=== PATIENT | male | born 1950 | race Caucasian/White ===

== ENCOUNTER 2021-04-01 07:03 | Outpatient (REF) | payer MEDICARE, SELFPAY ==
[2021-04-01 07:27] LABS: MANUAL DIFF FLAG NO
[2021-04-01 07:58] LABS: Basophils Absolute Auto 0.1 X10*3/uL (0.0-0.2); Basophils Percent Auto 1.7 % (0-2); Eosinophils Absolute Auto 0.2 X10*3/uL (0.0-0.4); Hematocrit 43.7 % (42.0-52.0); Hemoglobin 14.6 g/dl (14.0-18.0); Imm Gran Abs Auto 0.01 X10*3/uL (0.00-0.03); Imm Gran Pct Auto 0.2 % (0.0-0.4); Lymphocytes Absolute Auto 1.5 X10*3/uL (1.2-4.9); Lymphocytes Percent Auto 31.1 % (20-40); Mean Corpuscular HGB Conc 33.4 g/dl (31.0-36.0); Mean Corpuscular Hemoglobin 30.2 pg (27.0-33.0); Mean Corpuscular Volume 90.3 fL (80.0-98.0); Mean Platelet Volume 10.4 fL (9.4-12.4); Monocytes Absolute Auto 0.5 X10*3/uL (0.1-1.2); Monocytes Percent Auto 9.9 % (2-11); Neutrophils Absolute Auto 2.5 x10*3/uL (2.0-8.3); Neutrophils Percent Auto 53.1 % (45-73); Platelet Count 173 X10*3/uL (160-400); Red Blood Count 4.84 X10*6/uL (4.60-5.80); Red Cell Distribution Width 12.6 % (11.0-16.0); White Blood Count 4.8 X10*3/uL (4.8-10.8)
[2021-04-01 08:54] LABS: Alanine Aminotransferase 36 U/L (0-40); Albumin Level 4.4 g/dL (3.5-5.0); Alkaline Phosphatase 49 U/L (39-117); Anion Gap 10 (12-20); Aspartate Amino Transferase 30 U/L (5-37); Bilirubin Total 0.7 mg/dL (0.0-1.0); Blood Urea Nitrogen 17 mg/dL (9-16); Calcium 9.9 mg/dL (8.4-10.2); Carbon Dioxide 29 mmol/L (22-29); Chloride 104 mmol/L (96-108); Cholesterol 146 mg/dL; Estimated Glomerular Filt Rate > 60; Glucose Fasting 95 mg/dL (60-99); HDL Cholesterol 43 mg/dL; LDL Cholesterol Calculated 92 mg/dl; Potassium 4.2 mmol/L (3.3-5.1); Sodium 139 mmol/L (135-145); Total Protein 7.1 g/dL (6.5-8.0); Triglycerides 56 mg/dL
[2021-04-01 09:14] LABS: Prostate Specific Antigen Scr 0.79 ng/mL (<0.05-4.0)
== END 2021-04-01 07:04 | disposition home or self-care (01) ==
LOC: HO.LAB 07:03
PROVIDERS: PCP Internal Medicine; Visit Provider Internal Medicine
DX: Z12.5 Encounter for screening for malignant neoplasm of prostate (principal); I10 Essential (primary) hypertension; E78.00 Pure hypercholesterolemia, unspecified; N40.0 Benign prostatic hyperplasia without lower urinary tract symptoms
CPT/HCPCS: 36415; 80053; 80061; 84153; 85025

== ENCOUNTER 2022-09-07 06:17 | Outpatient (REF) | payer MEDICARE, SELFPAY ==
[2022-09-07 06:29] LABS: MANUAL DIFF FLAG NO
[2022-09-07 07:59] LABS: Basophils Absolute Auto 0.1 X10*3/uL (0.0-0.2); Basophils Percent Auto 1.5 % (0-2); Eosinophils Absolute Auto 0.2 X10*3/uL (0.0-0.4); Hematocrit 45.5 % (42.0-52.0); Hemoglobin 15.2 g/dl (14.0-18.0); Imm Gran Abs Auto 0.01 X10*3/uL (0.00-0.03); Imm Gran Pct Auto 0.2 % (0.0-0.4); Lymphocytes Absolute Auto 1.7 X10*3/uL (1.2-4.9); Lymphocytes Percent Auto 32.2 % (20-40); Mean Corpuscular HGB Conc 33.4 g/dl (31.0-36.0); Mean Corpuscular Hemoglobin 29.7 pg (27.0-33.0); Mean Platelet Volume 11.3 fL (9.4-12.4); Monocytes Absolute Auto 0.5 X10*3/uL (0.1-1.2); Monocytes Percent Auto 8.7 % (2-11); NRBC Pct Auto 0.4 /100WBC (0.0-0.2); Neutrophils Absolute Auto 2.8 x10*3/uL (2.0-8.3); Neutrophils Percent Auto 53.4 % (45-73); Platelet Count 212 X10*3/uL (160-400); Red Blood Count 5.11 X10*6/uL (4.60-5.80); Red Cell Distribution Width 12.8 % (11.0-16.0); White Blood Count 5.3 X10*3/uL (4.8-10.8)
[2022-09-07 08:05] LABS: Appearance Urine Cloudy; Color Urine Yellow; Glucose Urine UA Negative (Negative); Leukocyte Esterase Urine Negative (Negative); Nitrite Urine Negative (Negative); PH 7.5 (5.0-9.0); Urine Blood Negative (Negative); Urine Ketones Negative (Negative); Urine Protein Negative (Neg-Trace)
[2022-09-07 08:38] LABS: Alanine Aminotransferase 33 U/L (0-40); Albumin Level 4.4 g/dL (3.5-5.0); Alkaline Phosphatase 54 U/L (39-117); Anion Gap 12 (12-20); Aspartate Amino Transferase 29 U/L (5-37); Bilirubin Total 0.8 mg/dL (0.0-1.0); Blood Urea Nitrogen 21 mg/dL (9-16); Calcium 9.7 mg/dL (8.4-10.2); Carbon Dioxide 27 mmol/L (22-29); Chloride 105 mmol/L (96-108); Cholesterol 137 mg/dL; Estimated Glomerular Filt Rate > 60; Glucose Fasting 90 mg/dL (60-99); HDL Cholesterol 47 mg/dL; LDL Cholesterol Calculated 81 mg/dl; Potassium 4.6 mmol/L (3.3-5.1); Sodium 139 mmol/L (135-145); Triglycerides 48 mg/dL
[2022-09-07 08:45] LABS: Prostate Specific Antigen 0.74 ng/mL (<0.05-4.0)
== END 2022-09-07 06:18 | disposition home or self-care (01) ==
LOC: HO.LAB 06:17
PROVIDERS: PCP Internal Medicine; Visit Provider Internal Medicine
DX: Z00.00 Encounter for general adult medical examination without abnormal findings (principal); Z20.2 Contact with and (suspected) exposure to infections with a predominantly sexual mode of transmission; Z12.5 Encounter for screening for malignant neoplasm of prostate; Z82.49 Family history of ischemic heart disease and other diseases of the circulatory system
CPT/HCPCS: 36415; 80053; 80061; 81003; 84153; 85025

== ENCOUNTER 2022-11-17 11:58 | Outpatient (REF) | payer MEDICARE, SELFPAY ==
[2022-11-17 13:06] LABS: MANUAL DIFF FLAG NO
[2022-11-17 13:11] LABS: Basophils Absolute Auto 0.1 X10*3/uL (0.0-0.2); Basophils Percent Auto 1.7 % (0-2); Eosinophils Absolute Auto 0.3 X10*3/uL (0.0-0.4); Hematocrit 45.3 % (42.0-52.0); Hemoglobin 15.3 g/dl (14.0-18.0); Imm Gran Abs Auto 0.03 X10*3/uL (0.00-0.03); Imm Gran Pct Auto 0.6 % (0.0-0.4); Lymphocytes Absolute Auto 1.2 X10*3/uL (1.2-4.9); Lymphocytes Percent Auto 22.7 % (20-40); Mean Corpuscular HGB Conc 33.8 g/dl (31.0-36.0); Mean Corpuscular Hemoglobin 29.9 pg (27.0-33.0); Mean Corpuscular Volume 88.5 fL (80.0-98.0); Mean Platelet Volume 10.3 fL (9.4-12.4); Monocytes Absolute Auto 0.5 X10*3/uL (0.1-1.2); Monocytes Percent Auto 9.7 % (2-11); Neutrophils Absolute Auto 3.2 x10*3/uL (2.0-8.3); Neutrophils Percent Auto 60.3 % (45-73); Platelet Count 218 X10*3/uL (160-400); Red Blood Count 5.12 X10*6/uL (4.60-5.80); Red Cell Distribution Width 12.6 % (11.0-16.0); White Blood Count 5.3 X10*3/uL (4.8-10.8)
[2022-11-17 13:50] LABS: Anion Gap 13 (12-20); Blood Urea Nitrogen 23 mg/dL (9-16); C Reactive Protein < 0.10 mg/dL (< or = 0.50); Carbon Dioxide 27 mmol/L (22-29); Chloride 105 mmol/L (96-108); Estimated Glomerular Filt Rate > 60; Glucose Random 108 mg/dL (60-115); Potassium 4.7 mmol/L (3.3-5.1); Sodium 140 mmol/L (135-145)
[2022-11-17 13:59] LABS: Appearance Urine Clear; Color Urine Yellow; Glucose Urine UA Negative (Negative); Leukocyte Esterase Urine Negative (Negative); Nitrite Urine Negative (Negative); PH 6.5 (5.0-9.0); Specific Gravity - Urine 1.025 (1.005-1.025); Urine Blood Negative (Negative); Urine Ketones Negative (Negative); Urine Protein Negative (Neg-Trace)
== END 2022-11-17 11:59 | disposition home or self-care (01) ==
LOC: HO.10HDL 11:58
PROVIDERS: Visit Provider Internal Medicine
DX: Z13.89 Encounter for screening for other disorder (principal)
CPT/HCPCS: 36415; 80048; 81003; 82550; 85025; 86140

== ENCOUNTER 2022-11-17 13:28 | Outpatient (REF) | payer MEDICARE, SELFPAY ==
--- NOTE | ~2022-11-17 | US_ITS ---
EXAMINATION: US RETROPERITONEAL COMPLETE (RENAL) CLINICAL INFORMATION: Left flank pain. COMPARISON: CT abdomen and pelvis with contrast 11/26/2012. TECHNIQUE: Real-time imaging of the kidneys and bladder. FINDINGS: RIGHT KIDNEY: 10.4 x 4.6 x 4.7 cm (SAG x AP x TRV). The kidney is normal in size, contour, and echogenicity. Renal cortical thickness is normal. No definite calculi or focal parenchymal lesions. 2 x 3 mm punctate echogenic focus without twinkle artifact in the midpole questionable for stone versus vascular. No hydronephrosis. LEFT KIDNEY: 10.6 x 5.1 x 5.2 cm (SAG x AP x TRV). The kidney is normal in size, contour, and echogenicity. Renal cortical thickness is normal. No definite calculi or focal parenchymal lesions. 2 x 3 mm punctate echogenic focus without twinkle artifact in the midpole questionable for stone versus vascular. No hydronephrosis. BLADDER: Partially distended. Slightly thickened trabeculated bladder wall. Bilateral ureteral jets are demonstrated. Prevoid bladder volume is 127 mL. Postvoid bladder volume is 29.8 mL. ADDITIONAL FINDINGS: The prostate gland is enlarged. Prostate gland measures 8.7 x 5 x 4.8 cm, volume 11 1 mL US/US retroperitoneal comp IMPRESSION: Slightly thickened trabeculated bladder wall. Enlarged prostate gland. Question small bilateral renal stones.
== END 2022-11-17 13:29 | disposition home or self-care (01) ==
LOC: HO.US 13:28
PROVIDERS: PCP Internal Medicine; Visit Provider Internal Medicine
DX: R10.32 Left lower quadrant pain (principal)
CPT/HCPCS: 36415; 76770; 80048; 81003; 82550; 85025; 86140

== ENCOUNTER 2023-07-01 15:10 | Outpatient (REF) | payer MEDICARE, SELFPAY ==
--- NOTE | ~2023-07-01 | XR_ITS ---
EXAMINATION: XR PELVIS CLINICAL INFORMATION: Status post fall with pain COMPARISON: CT abdomen and pelvis from 11/26/2012 TECHNIQUE: AP view of the pelvis. FINDINGS: No fracture. Hip joint spaces are maintained. Alignment is anatomic. Sacroiliac joints and pubic symphysis are normal. No abnormal soft tissue calcifications. XR/XR pelvis 1-2V IMPRESSION: Normal pelvis.
--- NOTE | ~2023-07-01 | XR_ITS ---
EXAMINATION: XR CERVICAL SPINE CLINICAL INFORMATION: Neck pain COMPARISON: None available. TECHNIQUE: 3 views of the cervical spine were obtained. FINDINGS: There is straightening of cervical lordosis and mild narrowing cough C4-C5 C5-C6 and C6-C7 intervertebral disc space. There is no evidence of fracture or dislocation no spondylolysis or listhesis seen. Soft tissues unremarkable. There is no asymmetry seen on odontoid view. XR/XR cervical spine 3V IMPRESSION: Degenerative changes with cervical spasm.
== END 2023-07-01 15:11 | disposition home or self-care (01) ==
LOC: HO.XRAY 15:10
PROVIDERS: PCP Internal Medicine; Visit Provider Internal Medicine
DX: M54.2 Cervicalgia (principal); M25.551 Pain in right hip; M25.552 Pain in left hip; Z91.81 History of falling
CPT/HCPCS: 72040; 72170

== ENCOUNTER 2023-07-02 07:07 | Outpatient (REF) | payer MEDICARE, SELFPAY ==
[2023-07-02 07:26] LABS: MANUAL DIFF FLAG NO
[2023-07-02 08:10] LABS: Basophils Absolute Auto 0.1 X10*3/uL (0.0-0.2); Basophils Percent Auto 1.6 % (0-2); Eosinophils Absolute Auto 0.2 X10*3/uL (0.0-0.4); Eosinophils Percent Auto 3.7 % (0-4); Hematocrit 46.1 % (42.0-52.0); Hemoglobin 15.5 g/dl (14.0-18.0); Imm Gran Abs Auto 0.01 X10*3/uL (0.00-0.03); Imm Gran Pct Auto 0.2 % (0.0-0.4); Lymphocytes Absolute Auto 1.6 X10*3/uL (1.2-4.9); Mean Corpuscular HGB Conc 33.6 g/dl (31.0-36.0); Mean Corpuscular Hemoglobin 29.9 pg (27.0-33.0); Mean Platelet Volume 10.4 fL (9.4-12.4); Monocytes Absolute Auto 0.4 X10*3/uL (0.1-1.2); Monocytes Percent Auto 9.7 % (2-11); Neutrophils Absolute Auto 2.1 x10*3/uL (2.0-8.3); Neutrophils Percent Auto 47.8 % (45-73); Platelet Count 216 X10*3/uL (160-400); Red Blood Count 5.18 X10*6/uL (4.60-5.80); Red Cell Distribution Width 12.8 % (11.0-16.0); White Blood Count 4.3 X10*3/uL (4.8-10.8)
[2023-07-02 08:24] LABS: Appearance Urine Clear; Color Urine Yellow; Glucose Urine UA Negative (Negative); Leukocyte Esterase Urine Negative (Negative); Nitrite Urine Negative (Negative); PH 6.5 (5.0-9.0); Urine Blood Negative (Negative); Urine Ketones Negative (Negative); Urine Protein Negative (Neg-Trace)
[2023-07-02 08:39] LABS: Alanine Aminotransferase 32 U/L (0-40); Albumin Level 4.7 g/dL (3.5-5.0); Alkaline Phosphatase 47 U/L (39-117); Anion Gap 11 (12-20); Aspartate Amino Transferase 28 U/L (5-37); Bilirubin Total 0.7 mg/dL (0.0-1.0); Blood Urea Nitrogen 18 mg/dL (9-16); Calcium 9.9 mg/dL (8.4-10.2); Carbon Dioxide 29 mmol/L (22-29); Chloride 106 mmol/L (96-108); Cholesterol 158 mg/dL (<200); Estimated Glomerular Filt Rate > 60; Glucose Fasting 94 mg/dL (60-99); HDL Cholesterol 44 mg/dL (>40); LDL Cholesterol Calculated 101 mg/dL (<100); Sodium 141 mmol/L (135-145); Total Protein 7.5 g/dL (6.5-8.0); Triglycerides 65 mg/dL (<150)
[2023-07-02 09:14] LABS: Prostate Specific Antigen Scr 0.74 ng/mL (<0.05-4.0)
== END 2023-07-02 07:08 | disposition home or self-care (01) ==
LOC: HO.LAB 07:07
PROVIDERS: PCP Internal Medicine; Visit Provider Internal Medicine
DX: Z12.5 Encounter for screening for malignant neoplasm of prostate (principal); I10 Essential (primary) hypertension; E78.00 Pure hypercholesterolemia, unspecified; N40.0 Benign prostatic hyperplasia without lower urinary tract symptoms
CPT/HCPCS: 36415; 80053; 80061; 81003; 84153; 85025

== ENCOUNTER 2024-09-11 11:06 | Outpatient (AMB) | payer MEDICARE, SELFPAY ==
--- NOTE | 2024-09-11 11:07 | MHC.PC.OV ---
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 Accompanied by: Spouse Allergies No Known Allergies Allergy (Verified 09/11/24 11:12) Medication List - Last Reconciled 09/11/24 by LEROY Branham aspirin 81 mg PO DAILY atorvastatin 20 mg PO DAILY lisinopril 10 mg PO DAILY naproxen 500 mg PO BID Tobacco use date assessed: 09/11/24 Fall risk assessment: No Falls in past year Last assessed Fall Risk: 09/11/24 Dental Screening Dental Screen Date: 09/11/24 Did you have a dental visit in the last 12 months?: Yes Did you have a dental problem in the last 6 months where you did not have access to dental care?: No Was dental information given to patient?: Patient has dentist HPI HPI Comments History of Present Illness Details 73 year old male with history of htn and hld presents to the office with his for routine follow up and to establish care. He has been compliant with all medications but questions if he still needs to be on losartan. Previously blood pressures have been well controlled. In the office today, initial BP 160/80, on recheck 156/80. He does have history of carotid artery dissection about 2018 per his . He does take baby aspirin. He had colonscopy in 2014 with 5 year follow up advised given family history of colon cancer, though no polyps were noted in the patient himself. Repeat colonoscopy not performed. He had R shoulder arthoscopy 2 weeks ago with rotator cuff repaired and immobilizer in place. He is following with [facility] and will be starting PT soon. He is taking naproxen 500mg BID with good pain control. He is not a smoker and only drinks alcohol occasionally. He has concerns about atorvastatin and its necessity. [facility] Medical History (Updated 09/11/24 @ 12:11 by LEROY Branham) Rotator cuff tear, right Family history of colon cancer HLD (hyperlipidemia) HTN (hypertension) Surgical History (Updated 09/11/24 @ 12:11 by LEROY Branham) History of arthroscopy of right shoulder History of colonoscopy (~01/11/15) Family History (Updated 09/11/24 @ 11:15 by GEORGE Henao) Mother Heart disease Father Leukemia Sister Breast cancer Colon cancer Social History (Updated 09/11/24 @ 11:14 by GEORGE Henao) Housing: House Alcohol intake: current Alcohol intake frequency: a few times a week Patient Tobacco Use Status: Never used Tobacco service: No Current occupational status: retired Cognitive needs: No Hearing needs: No Vision needs: Yes (Bifocals) Questionnaire PHQ-9 Over the last 2 weeks, how often have you been bothered by any of the following problems? 1. Little interest or pleasure in doing things: not at all 2. Feeling down, depressed, or hopeless: not at all 3. Trouble falling or staying asleep, or sleeping too much: not at all 4. Feeling tired or having little energy: not at all 5. Poor appetite or overeating: not at all 6. Feeling bad about yourself - or that you are a failure or have let yourself or your family down: not at all 7. Trouble concentrating on things, such as reading the newspaper or watching television: not at all 8. Moving or speaking so slowly that other people could have noticed. Or the opposite - being so fidgety or restless that you have been moving around a lot more than usual: not at all 9. Thoughts that you would be better off or of hurting yourself in some way: not at all Total score: 0 Source: Developed by Drs. Dewayne Loomis, Sarah Gagnon, Jarret Vazquez and colleagues, with an educational altagracia from [employer]. Thrive Questionnaire Date Thrive assessed: 09/11/24 I am a: Patient What is your living situation today?: I have a steady place to live Within the past 12 months, did the food you bought not last and you didn't have the money to get more?: Never true Within the past 12 months, did you worry whether your food would run out before you got money to buy more?: Never true Do you have trouble paying for medicines?: No Do you have trouble getting transportation to medical appointments?: No Do you have trouble paying your heating and electricity bill?: No Do you have trouble taking care of your child, family member or friend?: No Do you have trouble with day-to-day activities such as bathing, preparing meals, shopping, managing finances, etc.?: No Are you currently unemployed and looking for a job?: No Are you interested in more education?: No Please select the resources that you would like help with: None THRIVE Score: 0 AUDIT C Alcohol Use Questionnaire (AUDIT-C) 1. How often do you have a drink containing alcohol?: Monthly or less Total Score: 1 TSERING-7 AMB Questionnaire TSERING-7 Date TSERING - 7 assessed: 09/11/24 Feeling nervous, anxious, or on edge: 0 = Not at all Not being able to stop or control worryin = Not at all Worrying too much about different things: 0 = Not at all Trouble relaxin = Not at all Being so restless that it is hard to sit still: 0 = Not at all Becoming easily annoyed or irritable: 0 = Not at all Source: Developed by Drs. Dewayne Loomis, Sarah Gagnon, Jarret Vazquez and colleagues, with an educational altagracia from [employer]. Review of Systems Const Details: General: No fevers, malaise, 10 lb weight gain Cardiovascular: No chest pain, palpitations, or leg edema Respiratory: No shortness of breath, wheezing, cough Physical exam (Primary Care) Vital Signs: Last Vital Signs Temp 97.8 F 09/11/24 11:16 Pulse 61 09/11/24 11:16 Resp 16 09/11/24 11:16 BP 160/80 H 09/11/24 11:16 Pulse Ox 98 09/11/24 11:16 Oxygen Delivery Method Room Air 09/11/24 11:16 BMI result Body Mass Index 28.6 Tobacco/Smoking Status: Tobacco use Status Tobacco use date assessed 09/11/24 09/11/24 11:17 Patient Tobacco Use Status Never used Tobacco 09/11/24 11:17 PHQ-9: PHQ-9 Score PHQ-9: Total score 0 09/11/24 11:53 Thrive Assessment: Date of Thrive Assessment Date Thrive assessed 09/11/24 09/11/24 11:17 Const Other: Constitutional - Awake and Alert, No apparent distress Eyes - PERRLA, EOMI Cardiovascular - S1S2, RRR, No edema Respiratory - Normal lung expansion, Normal respiratory effort, No respiratory distress, CTA bilaterally Extremities - no swelling MSK - RUE immobilized Skin - Warm/Dry Neurological - Alert & oriented x3 Psychological - Appropriate affect Coding Level of Care Code New Pt Level 4 (14694) Complex EM visit Add On G2211 Diagnoses HTN (hypertension) I10 HLD (hyperlipidemia) E78.5 Family history of colon cancer Z80.0 Rotator cuff tear, right M75.101 Assessment & Plan Assessment & Plan (1) HTN (hypertension): Code(s): I10 - Essential (primary) hypertension Category: Medical Plan: Uncontrolled with blood pressure on recheck 156/80. Previously well controlled even following recent surgery 2 weeks ago. possibly r/t naproxen use. Recommend increasing lisinopril to 20 mg daily until naproxen course completed. His has a blood pressure cuff at home and will monitor and notify the office of any ongoing increased blood pressures. Low sodium diet. Continue with regular exercise. (2) HLD (hyperlipidemia): Code(s): E78.5 - Hyperlipidemia, unspecified Category: Medical Plan: Risks and benefits of statin discussed. 30.6% ASCVD risk recommended, however will reassess lipid panel and lipoprotein A. Continue atorvastatin at this time. Continue with healthy diet and exercise. (3) Family history of colon cancer: Code(s): Z80.0 - Family history of malignant neoplasm of digestive organs Category: Medical Plan: Overdue for colon cancer screening. Given FH colon cancer recommended for 5 year follow ups, last colonoscopy 2014 without any notable polyps. Referred for colon cancer screening. (4) Rotator cuff tear, right: Code(s): M75.101 - Unspecified rotator cuff tear or rupture of right shoulder, not specified as traumatic Category: Medical Plan: s/p R shoulder arthroscopy 08/2024. Pain well controlled. Continue naproxen for now per orthopedic surgery. BP concerns as above. Continue asa for VTE prophylaxis. Follow up with [facility] as scheduled. Plan Follow up in 6 months. Referred for screening colonoscopy. Labs to be completed today as ordered and prior to next appt. Orders: Orders Complete Blood Count Auto Diff Today E78.5 - Hyperlipidemia, unspecified, I10 - Essential (primary) hypertension, Z13.1 - Encounter for screening for diabetes mellitus, Z13.220 - Encounter for screening for lipoid disorders Basic Metabolic Panel Today E78.5 - Hyperlipidemia, unspecified, I10 - Essential (primary) hypertension Lipid Panel Today E78.5 - Hyperlipidemia, unspecified, I10 - Essential (primary) hypertension Hemoglobin A1c Today E78.5 - Hyperlipidemia, unspecified, I10 - Essential (primary) hypertension Prostate Specific Antigen Today E78.5 - Hyperlipidemia, unspecified, I10 - Essential (primary) hypertension Lipoprotein A Today E78.5 - Hyperlipidemia, unspecified Basic Metabolic Panel 5 Months E78.5 - Hyperlipidemia, unspecified, I10 - Essential (primary) hypertension Liver Panel Today E78.5 - Hyperlipidemia, unspecified, I10 - Essential (primary) hypertension TSH reflex Free T4 Today E78.5 - Hyperlipidemia, unspecified, I10 - Essential (primary) hypertension Lipid Panel 5 Months E78.5 - Hyperlipidemia, unspecified, I10 - Essential (primary) hypertension Referrals Gastroenterology Referral Z12.11 - Encounter for screening for malignant neoplasm of colon Medications: New lisinopril 20 mg (2 x 10 mg) PO DAILY 90 tabs 0RF
[2024-09-11 11:16] VITALS: BP 160/80; PULSE 61; RESP 16; TEMP 36.6; O2SAT 98; BMI 28.6
== END 2024-09-11 11:42 | disposition home or self-care (01) ==
LOC: HO.HMCHD 11:06
PROVIDERS: PCP Internal Medicine; Visit Provider Physician Assistant
DX: I10 Essential (primary) hypertension (principal); E78.5 Hyperlipidemia, unspecified; Z80.0 Family history of malignant neoplasm of digestive organs; M75.101 Unspecified rotator cuff tear or rupture of right shoulder, not specified as traumatic

== ENCOUNTER → 2024-09-11 11:06 | Outpatient (BNVA) | payer MEDICARE, SELFPAY | PROVIDERS: PCP Internal Medicine; Visit Provider Physician Assistant | DX: I10 Essential (primary) hypertension (principal); E78.5 Hyperlipidemia, unspecified; M75.101 Unspecified rotator cuff tear or rupture of right shoulder, not specified as traumatic; Z80.0 Family history of malignant neoplasm of digestive organs | CPT/HCPCS: 99202 ==

== ENCOUNTER 2024-09-19 06:39 | Outpatient (REF) | payer MEDICARE, SELFPAY ==
--- OUTSIDE RECORDS SUMMARY | 2024-09-19 06:41 | XMS_ITS | Data Portability ---
Author Organization [facility], [facility] Address [address] [place] [address] Assessment No assessment recorded. Plan of Treatment Reminders Order Date Submit Date Provider Last Modified By Organization Details Last Modified Time Details Appointments PT INITIAL EVAL 2024 10:00A M Andrés Darleneek, PT Not available Not available Not available PT FOLLOW-U P 2024 03:00P M Andrés Colonek, PT Not available Not available Not available PT FOLLOW-U P 2024 08:00A M Andrés Florek, PT Not available Not available Not available PT FOLLOW-U P 2024 09:30A M Joseph Scafuri, CAN FILLER Not available Not available Not available PT FOLLOW-U P 2024 09:00A M Joseph Scafuri, CAN FILLER Not available Not available Not available PT FOLLOW-U P 2024 09:30A M Joseph Scafuri, CAN FILLER Not available Not available Not available PT FOLLOW-U P 2024 10:30A M Joseph Scafuri, CAN FILLER Not available Not available Not available PT FOLLOW-U P 2024 10:00A M Andrés Florek, PT Not available Not available Not available PT FOLLOW-U P 2024 10:00A M Andrés Florek, PT Not available Not available Not available PT FOLLOW-U P 2024 09:30A M Joseph Scafuri, CAN FILLER Not available Not available Not available PT FOLLOW-U P 2024 10:00A M Joseph Scafuri, CAN FILLER Not available Not available Not available PT FOLLOW-U P 2024 10:00A M Joseph Scafuri, CAN FILLER Not available Not available Not available PT FOLLOW-U P 2024 10:00A M Andrés Garcia, PT Not available Not available Not available POST OP 10 2024 10:20A M Zaire Desai MD Not available Not available Not available PT FOLLOW-U P 2024 10:00A M Andrés Garcia, PT Not available Not available Not available PT FOLLOW-U P 2024 02:45P M Joseph Scafuri, CAN FILLER Not available Not available Not available PT FOLLOW-U P 2024 10:00A M Joseph Scafuri, CAN FILLER Not available Not available Not available PT FOLLOW-U P 2024 10:00A M Joseph Scafuri, CAN FILLER Not available Not available Not available PT FOLLOW-U P 2024 10:00A M Joseph Scafuri, CAN FILLER Not available Not available Not available PT FOLLOW-U P 2024 10:30A M Joseph Scafuri, CAN FILLER Not available Not available Not available PT FOLLOW-U P 2024 10:00A M Joseph Scafuri, CAN FILLER Not available Not available Not available PT FOLLOW-U P 2024 10:30A M Joseph Scafuri, CAN FILLER Not available Not available Not available PT FOLLOW-U P 2024 10:00A M Andrés Garcia, PT Not available Not available Not available PT FOLLOW-U P 2024 10:00A M Andrés Garcia, PT Not available Not available Not available PT FOLLOW-U P 2024 10:30A M Joseph Scafuri, CAN FILLER Not available Not available Not available PT FOLLOW-U P 2024 10:00A M Andrés Garcia, PT Not available Not available Not available PT FOLLOW-U P 2024 10:00A M Joseph Scafuri, CAN FILLER Not available Not available Not available PT FOLLOW-U P 2024 10:00A M Joseph Scafuri, CAN FILLER Not available Not available Not available PT FOLLOW-U P 2024 10:00A M Joseph Scafuri, CAN FILLER Not available Not available Not available PT FOLLOW-U P 2024 10:00A M Joseph Espinosari, CAN FILLER Not available Not available Not available Lab None recorded . Referral None recorded . Procedures None recorded . Surgeries None recorded . Imaging MRI, shoulder , w/o contrast - rct 2024 025 [facility] [address], [place], [address], 08/02/2024 08:22:16 XR, shoulder , 2 or more view - room 221 right shoulder 2024 025 [facility] Office, [address], [address], [place], [address], 08/02/2024 08:22:16 Medication Orders None recorded . Patient TargetsNo targets recorded. Patient InstructionsNo instructions recorded. Reason for Referral None Reported. Results Created Date Observation Date Name Description Value Unit Range Abnormal Flag Note LastModifiedBy Organization Detail LastModifiedTime 07/19/1907/18/2024 XR, shoul lilia, 2 or more view http:/ [email or web address] ?Encry pted=s hAaTro YD8dLq bEUv6g %2BXZw aYqtaq 0bqfl% 2Fg9IQ a4ajBk vP9nXo QUaueC m3YtLR FvZlgJ JJ8mAn HZtai3 2u2874 AC0KqY n6BVKe vKiQtr MwF INTERFACE [facility] Office [address], [place], [address], 07/18/2024 10:06:20 07/19/19 25 07/18/2024 XR, shoul lilia, 2 or more view http:/ [email or web address] ?Encry pted=s hAaTro YD8dLq bEUv6g %2BXZw aYqtaq 0bqfl% 2Fg9IQ a4ajBk vP9nXo QUaueC m3YtLR FvZl[address] HZtai3 9o[address] AC0KqY n6BVKe vKiQtr MwF INTERFACE [facility] [address], [place], [address], 07/18/2024 10:06:22 07/27/1907/26/2024 MRI, shoul lilia, w/o contr ast [facility] Access ion Number : [id number] Patien t Name: Lawrence Figueroaa ashley Record Number : [id number] Date of : 1950 Date of Exam: 2024 Referr ing Physic ginette: [facility] [address] [facility] [address], [address] [place] [address] Exam: MR Should er (C-) CPT 00116 - Right Room Descri ption: [facility] Verio 3.0T MR Should er (C-) CPT 40428 CLINIC AL INDICA TION: Reason For Exam: M24.81 1 - Other specif ic joint derang ements of right should er, not elsewh ere classi fied, , rct Reason For Exam: M24.81 1 - Other specif ic joint derang ements of right should er, not elsewh ere classi fied, , rct [facility] TECHNI QUE: MRI of the right should er was perfor med withou t intrav enous contra st. COMPAR JONA: None. FINDIN GS: AC joint: Mild degene rative sclero tic and hypert rophic change s of the AC joint. No eviden ce of subacr omial osteop hyte. Rotato r cuff and biceps tendon : Full thickn ess tear of the anteri or supras pinatu s footpr int measur ing 1.4 cm AP by 1.3 cm transv erse. Partia l-thic kness bursal surfac e tear of the subsca pulari s tendon with underl amisha tendin osis. Medial sublux ation of the biceps tendon which demons trates partia l thickn ess longit udinal split tear at the juncti on of the intra- articu lar and extra articu lar segmen ts. Infras pinatu s and teres minor tendon s are intact . Normal rotato r cuff muscle bulk. Glenoi d labrum : Nondis placed SLAP tear of the superi or and anteri or superi or labrum . No eviden ce of para labral cyst. Articu lar cartil age: The articu lar cartil age is of normal thickn ess. No focal defect s are seen. Bone: Superi or migrat ion of the eri l head narrow ing the acromi ohumer al interv al. No eviden ce of fractu re or bone marrow contus ion. IMPRES BONILLA: Full-t hickne ss tear of the anteri or supras pinatu s footpr int Partia l-thic kness bursal surfac e tear and tendin osis of the subsca pulari s tendon Medial sublux ation of the biceps tendon which also demons trates partia l-thic kness longit udinal split tear at the juncti on of the intra- articu lar and extra- articu lar segmen ts Nondis placed SLAP tear of the superi or and anteri or superi or labrum Electr onical ly Signed By: Trey Deleon rd, MD [email or web address] [facility] ([facility]) [address], [place], [address], 07/26/2024 13:21:08 Result Notes None recorded. Problems Name Problem SNOMED Code Status Onset Date Resolution Date Notes Provider Name and Address Organization Details Recorded Time Pain of right shoulder region Active 2024 Henrry Leon PA-C [address], [place], [address], [facility] 5 09:57:36 Traumatic right rotator cuff tear Active 2024 Henrry Leon PA-C [address], [place], [address], [facility] 5 10:25:54 Derangement of right shoulder joint 9331574924103 9105 Active 2024 Henrry Leon PA-C [address], [place], [address], [place] [facility] 10:26:14 Problem Notes None recorded. Procedures Surgical History None recorded. Imaging Results Imaging Date Name Status LastModified by Organiz ation Details LastModified Time 07/18/2024 XR, shoulder, 2 or more view completed INTERFACE [facility] [address], [place], [address], 07/18/2024 10:06:20 07/18/2024 XR, shoulder, 2 or more view completed INTERFACE [facility] [address], [place], [address], 07/18/2024 10:06:22 07/26/2024 MRI, shoulder, w/o contrast completed [email or web address] [facility] ([facility]) [address], [place], [address], 07/26/2024 13:21:08 Procedure Notes None recorded. Medical Equipment None Reported. Allergies No known drug allergies Medications Name Sig Start Date Stop Date Status Note LastModified by Organization Details LastModified Time atorvastatin 20 mg tablet TAKE 1 TABLET BY MOUTH EVERY DAY active Not Available Not Available No t Available tizanidine 2 mg tablet TAKE 1 TABLET BY MOUTH EVERY 8 HOURS NEEDED FOR MUSCLE SPASMS active Not Available Not Available No t Available hydrocodone 5 mg-acetaminoph en 325 mg tablet TAKE 1 TABLET BY MOUTH EVERY 6 HOURS NEEDED FOR SEVERE PAIN active Not Available Not Available No t Available ondansetron HCl 4 mg tablet TAKE 1 TABLET BY MOUTH EVERY 8 HOURS NEEDED FOR NAUSEA AND VOMITING active Not Available Not Available No t Available tamsulosin 0.4 mg capsule TAKE 1 CAPSULE BY MOUTH EVERY DAY active Not Available Not Available No t Available lisinopril 10 mg tablet TAKE 1 TABLET BY MOUTH EVERY DAY active Not Available Not Available No t Available naproxen 500 mg tablet TAKE 1 TABLET BY MOUTH TWICE A DAY active Not Available Not Available No t Available oxycodone 5 mg tablet TAKE 1-2 TABLETS EVERY 4 HOURS NEEDED. 7 DAY RX. active Not Available Not Available No t Available Vitals Date Recorded Body height Body mass index (BMI) Body weight Provider Name and Address Organization Details Last Updated DateTime 07/18/2024 172.72 cm 27.4 kg/m2 93987.63 g Henrry Leon PA-C [address], [place], [address], [facility] 07/18/2024 09:56:12 Date Recorded Body height Body mass index (BMI) Body weight Provider Name and Address Organization Details Last Updated DateTime 07/28/2024 172.72 cm 27.4 kg/m2 84218.63 g Henrry Leon PA-C [address], [place], [address], [facility] 07/28/2024 10:58:11 Date Recorded Body height Body mass index (BMI) Body weight Body temperature Provider Name and Address Organization Details Last Updated DateTime 09/11/2024 172.72 cm 27.4 kg/m2 05771.63 g 98 [degF] Henrry Leon PA-C [address], [place], [address] , [facility] 09/11/2024 14:35:00 Social History Question Answer Notes LastModified by [employer] Details LastModified Time Tobacco Smoking Status Never Smoker Henrry Leon PA-C [address] [facility], [place], [address], [facility] 07/18/2024 09:56:57 What Is Your Relationship Status? Information not available 09/11/2024 Sex: Unknown Functional Status Question Answer Note LastModified by [employer] Details LastModified Time How many times per week do you consume alcohol? 1-2 times per week Information not available 07/18/2024 Do you use any illicit or recreational drugs? No Information not available 07/18/2024 What is your level of alcohol consumption? Occasional Information not available 07/18/2024 Mental Status None recorded. Family History Nothing Reported. Medical History Condition Response Hypertension Y Cholesterol Y Past Encounters Encounter ID Performer Location Encounter Start Date Encounter Closed Date Diagnosis/Indication Diagnosis SNOMED-CT Code Diagnosis ICD10 Code Diagnosis Note [id number] Henrry Leon PA-C [facility] [address] [place] [address] 07/18/2024 09:36:36 08/02/2024 08:22:16 Pain of right shoulder region 1164217307 M25.511 Traumatic right rotator cuff tear 4030375674 7003424 S46.011A Derangemen t of right shoulder joint 5772126585 4080383 M24.007 [id number] Henrry Leon PA-C [facility] [address] [place] [address] 07/28/2024 10:47:42 08/10/2024 12:57:43 Traumatic right rotator cuff tear 8187438381 6462410 S46.011A [id number] [facility] [address] [place] [address] 09/11/2024 14:06:15 09/14/2024 08:35:19 History of repair of musculotendinous cuff of shoulder 881883858 Z98.890 Health Concerns Section Related Observation LastModified by Organization Detai ls LastModified Time None Recorded Concern Status LastModified by Organization Details LastModified Time None Recorded Advance Directives Directive None Recorded Payers Encounter Date Sequence Insurance Name Policy Number Policy Cadena Covered Member ID Cadena Member ID Guarantor Name 07/18/2024 2 [place] [id number] Saman Rhodes Clementina [id number] Saman Clementina 07/18/2024 1 [place] [employer] Saman Rhodes Clementina [id number] Saman Clementina 07/28/2024 2 [place] [id number] Saman P Clementina [id number] Saman Clementina 07/28/2024 1 [place] Saman P Clementina [id number] Saman Clementina 09/11/2024 2 [place] [id number] Saman P Clementina [id number] Saman Clementina 09/11/2024 1 [place] [facility] [employer] Saman Mcrae [id number] Saman Mcrae Notes Date Note Type Note Provider Name and Address Organization Details Recorded Time 07/18/2024 text/html I am seeing this patient under the supervision of Dr. Christie who was available but did not see the patient. HPI: Saman is a very pleasant 73-year-old male who comes her office today for evaluation and chief complaint of right shoulder pain. He reports 6 months duration of symptoms aggravated mostly with pickleball related activities. He has a chief complaint of pain and weakness mechanical clicking and nighttime symptoms. He is attended physical therapy is been doing some anti-inflammatory medications without long-term benefit. Frustrated by this he now presents her office for orthopedic evaluation. Past history notable for previous cervical decompression and ACDF by Dr. Cavazos. PFMSH and ROS has been reviewed, updated, and signed by me and is located in the patient? ? ?s chart. PHYSICAL EXAMINATION: The patient is well appearing and in no apparent distress. Alert and oriented x 3. Gait is symmetric. Examination of the right shoulder findings include: ROM forward elevation 175? ? ?, external rotates 35? ? ?, internal rotates to back pocket, 4-/5 strength including rotator cuff and periscapular musculature. Good Muscle bulk and strength without atrophy. No evidence of instability of the shoulder. Positive impingement signs. Moderate AC joint tenderness, Mild tenderness within the bicipital groove. Negative Speed's, Negative O'briens, Negative Tammy tests. Cervical ROM normal without radicular symptoms. No erythema, no redness, no warmth. Peripheral, vascular, lymphatic examination, skin, neurological, coordination, reflexes, sensation are within normal limits. X-RAY REPORT: X-rays were ordered, obtained and independently reviewed today at [facility]. Four views of the right shoulder demonstrate type II acromion, mild AC joint arthritis, well-preserved glenohumeral joint, no calcific tendinopathy noted. IMPRESSION: Right shoulder impingement, AC joint arthritis, small full-thickness rotator cuff tear. PLAN: Considering the 6 months of ongoing symptoms weakness his age, morphology pre-existing neck condition which is no longer symptomatic I have recommended he undergo MRI imaging of the right shoulder. MRI was ordered of the right shoulder for evaluation of the rotator cuff. Patient will check back once MRI is complete to discuss definitive care moving forward. [employer] speech recognition head school custodian software was used to create portions of this document. An attempt at proofreading has been made to minimize errors. Please call for corrections. Henr[facility] Leon [facility]-C [address] [facility] [address], [place], [address], [place] [facility] 07/18/2024 10:47:21 07/28/2024 text/html I am seeing this patient under the supervision of Dr. Brock who was available but did not see the patient. HPI: Saman is a very pleasant 73-year-old male who comes her office today for evaluation and chief complaint of right shoulder pain. He reports 6 months duration of symptoms aggravated mostly with pickleball related activities. He has a chief complaint of pain and weakness mechanical clicking and nighttime symptoms. He is attended physical therapy is been doing some anti-inflammatory medications without long-term benefit. Frustrated by this he now presents her office for orthopedic evaluation. Past history notable for previous cervical decompression and ACDF by Dr. Cavazos. Clinical update: Patient returns today for follow-up evaluation review MRI findings continued complaint of persistent weakness in that shoulder. MRI findings: Independently reviewed today show full-thickness mildly retracted tear involving supraspinatus, upper border subscapularis with medial dislocation of the biceps, significant biceps tendinopathy, degenerative labral fraying with AC joint arthritis and type II acromion. PMH: Hypercholesteremia, hypertension Family Hx: Negative Meds: Atorvastatin, lisinopril Allergies: NKDA ROS: Negative Social Hx: Negative PHYSICAL EXAMINATION: The patient is well appearing and in no apparent distress. Alert and oriented x3. Gait is symmetric. EXAM: HEENT is unremarkable Heart regular rate and rhythm without murmurs rubs gallops Abdomen soft nontender nondistended positive bowel sounds. Lungs are clear bilaterally without rales rhonchi or wheezes Peripheral, vascular, lymphatic examination, skin, neurological, coordination, reflexes, sensation are within normal limits. Examination of the right shoulder findings include: ROM forward elevation 175? ? ?, external rotates 35? ? ?, internal rotates to back pocket, 4-/5 strength including rotator cuff and periscapular musculature. Good Muscle bulk and strength without atrophy. No evidence of instability of the shoulder. Positive impingement signs. Moderate AC joint tenderness, Mild tenderness within the bicipital groove. Negative Speed's, Negative O'briens, Negative Tammy tests. Cervical ROM normal without radicular symptoms. No erythema, no redness, no warmth. Peripheral, vascular, lymphatic examination, skin, neurological, coordination, reflexes, sensation are within normal limits. X-RAY REPORT: X-rays were ordered, obtained and independently reviewed today at [facility]. Four views of the right shoulder demonstrate type II acromion, mild AC joint arthritis, well-preserved glenohumeral joint, no calcific tendinopathy noted. IMPRESSION: Right shoulder impingement, AC joint arthritis, full-thickness rotator cuff tear. 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 We talked about expectations length of time recovery ultimately decision was made to go forth right shoulder SAD/DCE with rotator cuff repair, possible biceps tenodesis. Patient has requested the surgical services of Dr. Desai who was operated on his previously. [facility] speech recognition head school custodian software was used to create portions of this document. An attempt at proofreading has been made to minimize errors. Please call for corrections. Henrry Leon PA-C [address] [place] [address] [address], [place], [address], [facility] 07/28/2024 11:48:02 09/11/2024 text/html I am seeing the patient today under the supervision of {{Holly Desai}} who was available but who did not see the patient. Surgery: {{Left Right*}} SAD/DCE knee with arthroscopic rotator cuff repair with biceps tenodesis Interval History: Patient today for initial postoperative visit, patient has been compliant utilizing the sling, following postoperative instructions given at the surgery center. Past family, medical, social history and review of systems have been reviewed and updated on the medical history sheet saved to the patient's chart. A 12-point review of systems is negative x12 except as noted above and/or on the medical history sheet. Examination: Shoulder demonstrates well-healed incision, sutures removed, Steri-Strips applied, normal deltoid sensation, neurovascular status normal. Impression: s/p {{Left Right*}} Shoulder surgery outlined above Plan: Recommendations made to continue following postoperative instructions, continued daily pendulum related exercises and use of sling and elbow range of motion to tolerance. We will initiate physical therapy at 3 weeks postoperatively to begin with passive range of motion, progress to active assisted range of motion and eventually active range of motion by 8 weeks, light strengthening to begin at approximately 3 months. Patient to be reassessed an approximate 7 weeks for routine follow-up care. Henrry Leon PA-C [address] [place] [address] [address], [place], [address], [facility] 09/11/2024 18:06:33
[2024-09-19 06:51] LABS: MANUAL DIFF FLAG NO
[2024-09-19 07:11] LABS: Basophils Absolute Auto 0.1 X10*3/uL (0.0-0.2); Basophils Percent Auto 1.4 % (0-2); Eosinophils Absolute Auto 0.2 X10*3/uL (0.0-0.4); Eosinophils Percent Auto 3.4 % (0-4); Hematocrit 42.2 % (42.0-52.0); Hemoglobin 15.1 g/dl (14.0-18.0); Imm Gran Abs Auto 0.02 X10*3/uL (0.00-0.03); Imm Gran Pct Auto 0.4 % (0.0-0.4); Lymphocytes Absolute Auto 1.7 X10*3/uL (1.2-4.9); Mean Corpuscular HGB Conc 35.8 g/dl (31.0-36.0); Mean Corpuscular Hemoglobin 30.5 pg (27.0-33.0); Mean Corpuscular Volume 85.3 fL (80.0-98.0); Monocytes Absolute Auto 0.5 X10*3/uL (0.1-1.2); Monocytes Percent Auto 8.1 % (2-11); Neutrophils Absolute Auto 3.1 x10*3/uL (2.0-8.3); Neutrophils Percent Auto 56.7 % (45-73); Platelet Count 228 X10*3/uL (160-400); Red Blood Count 4.95 X10*6/uL (4.60-5.80); Red Cell Distribution Width 12.7 % (11.0-16.0); White Blood Count 5.5 X10*3/uL (4.8-10.8)
[2024-09-19 07:19] LABS: Estimated Average Glucose 103 mg/dL; Hemoglobin A1C 132.8799 umol/L; Hemoglobin A1c % 5.2 % (<6.0); Total Hemoglobin (HGBA1C) 3998.9203 umol/L
[2024-09-19 07:43] LABS: Alanine Aminotransferase 35 U/L (0-40); Albumin Level 4.4 g/dL (3.5-5.0); Alkaline Phosphatase 56 U/L (39-117); Anion Gap 11 (12-20); Aspartate Amino Transferase 30 U/L (5-37); Bilirubin Direct 0.2 mg/dL (0.0-0.5); Bilirubin Total 0.5 mg/dL (0.0-1.0); Blood Urea Nitrogen 17 mg/dL (9-16); Calcium 9.7 mg/dL (8.4-10.2); Carbon Dioxide 26 mmol/L (22-29); Chloride 107 mmol/L (96-108); Cholesterol 152 mg/dL (<200); Estimated Glomerular Filt Rate > 60; Glucose Random 97 mg/dL (60-115); HDL Cholesterol 42 mg/dL (>40); LDL Cholesterol Calculated 100 mg/dL (<100); Potassium 4.1 mmol/L (3.3-5.1); Sodium 140 mmol/L (135-145); Total Protein 7.4 g/dL (6.5-8.0); Triglycerides 52 mg/dL (<150)
[2024-09-19 07:58] LABS: Prostate Specific Antigen 1.61 ng/mL (<0.05-4.0)
[2024-09-19 08:00] LABS: TSH reflex Free T4 2.96 uIU/mL (0.32-4.0)
[2024-09-23 06:38] LABS: Lipoprotein A <10 nmol/L (<75)
== END 2024-09-19 06:40 | disposition home or self-care (01) ==
LOC: HO.LAB 06:39
PROVIDERS: PCP Internal Medicine; Visit Provider Physician Assistant
DX: E78.5 Hyperlipidemia, unspecified (principal); I10 Essential (primary) hypertension; Z13.1 Encounter for screening for diabetes mellitus; Z13.220 Encounter for screening for lipoid disorders; Z12.5 Encounter for screening for malignant neoplasm of prostate
CPT/HCPCS: 36415; 80048; 80061; 80076; 83036; 83695; 84153; 84443; 85025

== ENCOUNTER 2024-12-21 06:32 | Outpatient (REF) | payer MEDICARE, SELFPAY ==
--- OUTSIDE RECORDS SUMMARY | 2024-12-21 06:35 | XMS_ITS | Clinical Summary ---
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 Active lisinopril (PRINIVIL,ZESTRI L) 10 MG tablet Take 10 mg by mouth daily. Active aspirin 81 mg chewable tablet Take 81 mg by mouth daily. Active Active Problems Problem Noted Date Diagnosed Date Mass of face 10/14/2022 Lipoma of face 09/21/2022 Mass of scalp 09/21/2022 Hypertensive disorder 02/20/2014 Overview (06/22/2014): Hypertensive disorder Family History Medical History Relation Comments Cancer Father Heart disease Father Heart disease Mother Relation Status Comments Father Mother Social History Tobacco Use Types Packs/Day Years Used Date Smoking Tobacco: Never Smokeless Tobacco: Never Tobacco Cessation:Counseling Given: Not Answered Alcohol Use Standard Drinks/Week Comments Yes 0 (1 standard drink = 0.6 oz pur e alcohol) Education Answer Date Recorded Are you interested in more education? Not on ramy e 09/02/2022 Are you concerned about learning? Not on file 09/02/2022 No 09/02/2022 No 09/02/2022 Digital Access Answer Date Recorded No 2022 No 2022 No 2022 Reliable internet access at home? Not on file 2022 Device with a working camera? Not on file Sex and Gender Information Value Date Recorded Sex Assigned at Not on file Legal Sex Male 7:14 PM EST Gender Identity Not on file Sexual Orientation Not on file Last Filed Vital Signs Vital Sign Reading Time Taken Comments Blood Pressure 129/81 09/21/2022 10:44 AM EDT Pulse 52 09/21/2022 10:44 AM EDT Temperature - - Respiratory Rate - - Oxygen Saturation - - Inhaled Oxygen Concentration - - Weight 81.2 kg (179 lb) 09/21/2022 10:44 AM EDT Height 170.2 cm (5' 7 ) 09/21/2022 10:44 AM EDT Body Mass Index 28.04 09/21/2022 10:44 AM EDT Plan of Treatment Health Maintenance Due Date Last Done Comments Adult Td,Tdap Booster 1950 CREATININE LEVEL 1951 LIPID PANEL 1951 POTASSIUM LEVEL 1951 DEPRESSION SCREENING 1963 HEPATITIS C SCREENING 09/21/1969 COLOGUARD 09/21/1996 COLONOSCOPY 09/21/1996 COLORECTAL CANCER SCREENING 09/21/1996 FIT TEST 09/21/1996 FOBT 09/21/1996 SIGMOIDOSCOPY 09/21/1996 VIRTUAL COLONOSCOPY 09/21/1996 PNEUMOCOCCAL VACCINES (50+ y ears) (1 of 1 - PCV) 09/21/2001 ZOSTER VACCINES (1 of 2) 09/21/2001 BLOOD PRESSURE 03/24/2023 09/21/2022 COVID-19 VACCINE ( - 2023-2 5 season) 2024 RSV VACCINE (1 - 1-dose 75+ series) 09/21/2026 SMOKING STATUS SCREENING (On ce After 26 Yrs) Completed 09/21/2022 HEPATITIS A VACCINES Aged Out No long er eligible based on patient's age to complete this topic HIB VACCINES Aged Out No longer eligi ble based on patient's age to complete this topic MENINGOCOCCAL VACCINES (ACWY) Aged Out No longer eligible based on patient's age to complete this topic MENINGOCOCCAL VACCINES (B) Aged Out N o longer eligible based on patient's age to complete this topic Medical Devices Not on file Insurance [employer] CROSS MEDEX SUPPLEMENT MEDICARE PART A & B [employer] CROSS MEDEX SUPPLEMENT MEDICARE PART A & B [employer] MEDEX SUPPLEMENT MEDICARE PART A & B [employer] MEDEX SUPPLEMENT MEDICARE PART A & B [employer] MEDEX SUPPLEMENT MEDICARE PART A & B Member Subscriber Plan / Payer ( fective 2018-Present) Name:Saman Mcrae Member ID:[id number] Relation to Subscriber:Self Name:Saman Mcrae Subscriber ID:[id number] Payer ID:[id number] Group ID:Not on file Type:Medicare Address: [employer] 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 It is not the complete legal health record.[facility]
[2024-12-21 07:51] LABS: Cholesterol 201 mg/dL (<200); HDL Cholesterol 37 mg/dL (>40); Triglycerides 129 mg/dL (<150)
== END 2024-12-21 06:33 | disposition home or self-care (01) ==
LOC: HO.LAB 06:32
PROVIDERS: PCP Physician Assistant; Visit Provider Physician Assistant
DX: E78.5 Hyperlipidemia, unspecified (principal)
CPT/HCPCS: 36415; 80061

== ENCOUNTER 2025-03-12 08:55 | Outpatient (AMB) | payer MEDICARE, SELFPAY ==
--- NOTE | 2025-03-12 07:34 | A.OFFPC_ITS ---
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 Director Required: No Accompanied by: Self / Same As Patient Allergies No Known Allergies Allergy (Verified 03/12/25 07:35) Medication List - Last Reconciled 03/12/25 by LEROY Branham aspirin 81 mg PO DAILY docosahexaenoic acid-epa 120-180 mg (Fish Oil) 1 cap PO DAILY lisinopril 20 mg PO DAILY multivitamin 1 tab PO DAILY Tobacco use date assessed: 09/11/24 Fall risk assessment: No Falls in past year Dental Screening Dental Screen Date: 09/11/24 HPI HPI Comments History of Present Illness Details 73 year old male with history of htn and hld presents to the office with his for routine follow up and to establish care. He has been compliant with all medications but questions if he still needs to be on losartan. Hypertension-on lisinopril 10 mg daily. Blood pressure initially in the office 134/90. took BP at home which was 152/97. On recheck, blood pressure 144/88. Took med 10mg. Hyperlipidemia-discontinued atorvastatin due to concerns about side effects. 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 No sore throat, nasal congestion, rhinorrhea, sinus pain, ear pain Cardiovascular: No chest pain, palpitations, or leg edema Respiratory: No shortness of breath, wheezing, cough GI: No abdominal pain, nausea, vomiting, diarrhea, constipation, melena, hematochezia : No dysuria, hematuria, increased urinary frequency, decreased urinary output MSK: No myalgia, back pain Neuro: No headaches, weakness, paresthesias Skin: No rashes or lesions EXAM: Constitutional - Awake and Alert, No apparent distress Eyes - PERRL Cardiovascular - S1S2, RRR, No edema Respiratory - Normal lung expansion, Normal respiratory effort, No respiratory distress, CTA bilaterally Extremities - no calf tenderness bilaterally, no swelling Skin - Warm/Dry Neurological - Alert & oriented x3 Psychological - Appropriate affect PFSH Medical History (Updated 03/12/25 @ 09:30 by LEROY Branham) Carotid artery dissection Rotator cuff tear, right Family history of colon cancer HLD (hyperlipidemia) HTN (hypertension) Surgical History (Updated 09/11/24 @ 12:11 by LEROY Branham) History of arthroscopy of right shoulder History of colonoscopy (~01/11/15) Family History (Updated 09/11/24 @ 11:15 by GEORGE Henao) Mother Heart disease Father Leukemia Sister Breast cancer Colon cancer Social History (Updated 09/11/24 @ 11:14 by GEORGE Henao) Housing: House Alcohol intake: current Alcohol intake frequency: a few times a week Patient Tobacco Use Status: Never used Tobacco e-Cigarette/Vaping Use: Never Used service: No Current occupational status: retired Cognitive needs: No Hearing needs: No Vision needs: Yes (Bifocals) Questionnaire Thrive Questionnaire Date Thrive assessed: 09/11/24 TSERING-7 AMB Questionnaire TSERNIG-7 Date TSERING - 7 assessed: 09/11/24 Source: Developed by Drs. Dewayne Loomis, Sarah Gagnon, Jarret Vazquez and colleagues, with an educational altagracia from [employer]. Physical exam (Primary Care) Vital Signs: Last Vital Signs Temp 97.5 F 03/12/25 09:00 Pulse 63 03/12/25 09:00 Resp 18 03/12/25 09:00 BP 134/90 H 03/12/25 09:00 Pulse Ox 98 03/12/25 09:00 Oxygen Delivery Method Room Air 03/12/25 09:00 BMI result Body Mass Index 28.6 Tobacco/Smoking Status: Tobacco use Status Tobacco use date assessed 09/11/24 03/12/25 07:35 Patient Tobacco Use Status Never used Tobacco 03/12/25 09:03 e-Cigarette/Vaping Use Never Used 03/12/25 09:03 Thrive Assessment: Date of Thrive Assessment Date Thrive assessed 09/11/24 03/12/25 07:35 Coding Level of Care Code Est Pt Level 4 (62816) Complex EM visit Add On G2211 Diagnoses HTN (hypertension) I10 HLD (hyperlipidemia) E78.5 Family history of colon cancer Z80.0 Rotator cuff tear, right M75.101 Assessment & Plan Assessment & Plan (1) HTN (hypertension): Code(s): I10 - Essential (primary) hypertension Category: Medical Plan: Increase lisinopril to 20 mg daily. Advised to send blood pressures to the office (2) HLD (hyperlipidemia): Code(s): E78.5 - Hyperlipidemia, unspecified Category: Medical Plan: Risks and benefits of statin discussed. ASCVD risk score calculated and discussed with patient. He would like to try conservative route for cholesterol management. Counseled on diet and is referred to dietitian at his request. Discussed statin supplements that could be helpful including oil and Co Q10. Lipid panel ordered to be performed several days prior to next visit (3) Family history of colon cancer: Code(s): Z80.0 - Family history of malignant neoplasm of digestive organs Category: Medical Plan: Overdue for colon cancer screening. Given FH colon cancer recommended for 5 year follow ups, last colonoscopy 2014 without any notable polyps. Referred for colon cancer screening. (4) Rotator cuff tear, right: Code(s): M75.101 - Unspecified rotator cuff tear or rupture of right shoulder, not specified as traumatic Category: Medical Plan: s/p R shoulder arthroscopy 08/2024. Pain well controlled. Continue naproxen for now per orthopedic surgery. BP concerns as above. Continue asa for VTE prophylaxis. Follow up with [facility] as scheduled. Plan Follow up in 6 months. Referred for screening colonoscopy. Labs to be completed today as ordered and prior to next appt. Orders: Orders Lipid Panel 6 Months E78.5 - Hyperlipidemia, unspecified, I10 - Essential (primary) hypertension Liver Panel 6 Months E78.5 - Hyperlipidemia, unspecified, I10 - Essential (primary) hypertension Basic Metabolic Panel 6 Months E78.5 - Hyperlipidemia, unspecified, I10 - Essential (primary) hypertension Referrals [facility] Practitioner Nutrition Referral E78.5 - Hyperlipidemia, unspecified Medications: New lisinopril 20 mg PO DAILY 90 tabs 1RF Discontinued lisinopril Discontinued Reason: Doctor's Order 20 mg (2 x 10 mg) PO DAILY 90 days 180 tabs 1RF
[2025-03-12 09:00] VITALS: BP 134/90; PULSE 63; RESP 18; TEMP 36.4; O2SAT 98; BMI 28.6
--- OUTSIDE RECORDS SUMMARY | 2025-03-12 09:34 | XMS_ITS | Clinical Summary ---
Author Organization [facility] Address [address] [place] [phone] Phone Care Team Providers Care Neuro Urologist Name Role Phone Phu Cabrera MD Primary [...] of 2) 09/21/2001 BLOOD PRESSURE 03/24/2023 09/21/2022 INFLUENZA VACCINE (#1) 2024 COVID-19 VACCINE (1 - 2024-2 6 season) 2025 RSV VACCINE (1 - 1-dose 75+ series) [...] topic Medical Devices Not on file Insurance [employer] MEDEX SUPPLEMENT MEDICARE PART A & B [employer] CROSS MEDEX SUPPLEMENT MEDICARE PART A & B MEDICARE PART A & B [employer] MEDEX SUPPLEMENT MEDICARE PART A & B [employer] MEDEX SUPPLEMENT MEDICARE PART A & B Member Subscriber Plan / Payer ( fective 2018-Present) Name:Saman Mcrae Member ID:[id number] Relation to Subscriber:Self Name:Saman Mcrae Subscriber ID:[id number] Payer ID:[id number] Group ID:Not on file Type:Medicare Address: [employer] [address] [place] [id number] [employer] MEDEX SUPPLEMENT MEDICARE PART A & B Care Teams Neuro Urologist Relationship Specialty Start Date End Date Phu Cabrera MD [address] [place] [address] [place] [address] PCP - General Internal Medicine 02/16/14 Additional Source Comments The information contained in this document represents components of the legal health record. It is not the complete legal health record.[facility]
--- OUTSIDE RECORDS SUMMARY | 2025-03-12 09:34 | XMS_ITS | Patient Health Record ---
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 Role Phone Deborah (RETIRED) Phu OBRIEN Primary Care Provide r Unavailable Dewayne Rose [phone] Reason For Referral No Information Medications Medication SIG (Take, Route, Frequency, Duration) Notes Start Date End Date Status Aspirin Adult Low Strength 81 MG 1 tablet Orally Once a day Active Atorvastatin Calcium 20 MG 1 tablet Oral ly Once a day Active MoviPrep 100 GM as directed Orally a s directed; Duration: 1 dose 10/23/2014 Active Lisinopril 20 MG 1 tablet Orally Once a day Active Problems Problem Type SNOMED Code ICD Code Onset Dates Problem Status W/U Status Risk Notes Problem Family History of Cancer of Colon (Situation) (290400383) Family history of colon cancer (V16.0) Active confirmed Problem Colon cancer screening (453628914) Colon cancer screening (V76.51) Active confirmed Problem Long-term use of aspirin therapy (V58.66) Active confirmed Plan Of Treatment Future Test Test Name Order Date COLONOSCOPY 10/17/2014 Insurance Providers Payer Name Payer Address Payer Phone Subscriber Number Group Number Insured Name Patient Relationship to Insured Coverage Start Date Coverage End Date [facility] [address] [place], [place] [id number] [phone] [id number] ANGELA DOBBS KARYN Self - patient is the insured Medical (General) History Medical History History ICD Code negative colonoscopy in 2003 , other than a hyperplastic polyp, and a negative colonoscopy in 05/2009--he does have some mild sigmoid diverticulosis and small internal hemorrhoids Denies [place],DM,CVA,Lung disease,renal dise ase 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
== END 2025-03-12 09:28 | disposition home or self-care (01) ==
LOC: HO.HMCHD 08:55
PROVIDERS: PCP Internal Medicine; Visit Provider Physician Assistant
DX: I10 Essential (primary) hypertension (principal); E78.5 Hyperlipidemia, unspecified; Z80.0 Family history of malignant neoplasm of digestive organs; M75.101 Unspecified rotator cuff tear or rupture of right shoulder, not specified as traumatic

== ENCOUNTER → 2025-03-12 08:55 | Outpatient (BNVA) | payer MEDICARE, SELFPAY | PROVIDERS: PCP Internal Medicine; Visit Provider Physician Assistant | DX: Z76.89 Persons encountering health services in other specified circumstances (principal); I10 Essential (primary) hypertension; E78.5 Hyperlipidemia, unspecified; M75.101 Unspecified rotator cuff tear or rupture of right shoulder, not specified as traumatic; I77.71 Dissection of carotid artery; Z79.82 Long term (current) use of aspirin; Z79.899 Other long term (current) drug therapy; Z80.0 Family history of malignant neoplasm of digestive organs | CPT/HCPCS: 99212 ==